=== PATIENT | male | born 1960 | race Caucasian/White ===

== ENCOUNTER 2016-04-15 22:43 | Inpatient (IN) | payer BC ==
[2016-04-15 23:07] LABS: % IMMATURE GRANULYOCYTES 0.1 % (0.0-1.1); ABSOLUTE IMMATURE GRANULOCYTES 0.01 10^3/uL (0.00-0.10); ADD DIFF? NO; ADD MORPH? NO; ADD SCAN? NO; ATYPICAL LYMPHOCYTE FLAG 20 (0-99); FRAGMENT RBC FLAG 0 (0-99); HEMATOCRIT 47.7 % (40.0-51.0); HEMOGLOBIN 15.9 g/dL (13.7-17.5); LEFT SHIFT FLG 0 (0-99); LIPEMIA HEMOLYSIS FLAG 80 (0-99); MEAN CELL HEMOGLOBIN 29.6 pg (27.9-34.1); MEAN CELL HEMOGLOBIN CONCENTR. 33.3 g/dL (32.4-36.7); MEAN CELL VOLUME 88.8 fL (81.5-99.8); MEAN PLATELET VOLUME 10.7 fL (8.7-11.7); PLATELET CLUMPS FLAG 0 (0-99); PLATELET COUNT 229 10^3/uL (150-400); RED BLOOD CELL COUNT 5.37 10^6/uL (4.40-6.38); RED CELL DISTRIBUTION WIDTH 12.3 % (11.5-15.2)
--- NOTE | 2016-04-15 23:14 | CPEKG ---
Heart Rate: 71 RR Interval: 845 P-R Interval: 172 QRSD Interval: 94 QT Interval: 376 QTC Interval: 409 P Sardis: 64 QRS [place]ardis: 31 T Wave S[place]is: 65 EKG Severity - BORDERLINE ECG - EKG Impression: SINUS RHYTHM EKG Impression: PROBABLE LEFT ATRIAL ABNORMALITY Electronically Signed By: Leigh Ortiz 16-Apr-2016 06:33:02
[2016-04-15 23:18] LABS: ANION GAP 13 mEq/L (8-16); CALCIUM 9.7 mg/dL (8.5-10.4); CARBON DIOXIDE 27 mEq/l (22-31); CHLORIDE 103 mEq/L (97-110); GLOMERULAR FILTRATION RATE > 60; GLUCOSE 121 mg/dL (70-100); POTASSIUM 3.7 mEq/L (3.5-5.2); SODIUM 143 mEq/L (134-144)
[2016-04-16] MEDS ORDERED: NS 1,000 ML IV SCH ×3 (00:30→15:15)
--- NOTE | 2016-04-16 00:53 | EDPHY ---
H & P Stated Complaint: right side face droop and r arm weakness, 2215 onset Time Seen by Provider: 04/15/16 23:12 HPI/ROS: HPI The patient presents with right-sided facial drooping and right upper extremity weakness which he initially noticed at 10 25:00 p.m. tonight while watching television. He felt the acute onset of numbness of the right side of his face and noticed that his speech was slurred. He had difficulty moving his face. He also noticed that his right hand was weak. When he tried to brush his teeth he was unable to hold the toothbrush. He came into the emergency room immediately and says that his symptoms have improved somewhat but not completely. He does not have any headache or vomiting. He does not have any loss of consciousness. He denies any recent injuries. He has no prior history of similar. He has not been sick recently. REVIEW OF SYSTEMS Constitutional: No fever, no chills. Eyes: No discharge. ENT: No sore throat. Cardiovascular: No chest pain, no palpitations. Respiratory: No cough, no shortness of breath. Gastrointestinal: No abdominal pain, no vomiting. Genitourinary: No hematuria. Musculoskeletal: No back pain. Skin: No rashes. Neurological: No headache. PMHx: Healthy, no hypertension or diabetes Soc Hx: Denies any alcohol or drug use PHYSICAL General Appearance: Alert, no distress Eyes: Pupils equal and round no pallor or injection ENT, Mouth: Mucous membranes moist Respiratory: There are no retractions, lungs are clear to auscultation Cardiovascular: Regular rate and rhythm Gastrointestinal: Abdomen is soft and non-tender, no masses, bowel sounds normal Neurological: Alert and oriented x3, cranial nerves 2-12 intact except for mild right-sided facial droop which spares forehead, speech is fluid, no pronator drift, 5/5 strength in upper and lower extremities which is symmetric, no extinction, normal finger to nose and heel to murphy testing. NIH stroke score is 1. Skin: Warm and dry, no rashes Musculoskeletal: Neck is supple non tender Extremities: symmetrical, full range of motion Psychiatric: Patient is oriented X 3, there is no agitation Source: Patient - Personal History Current Tetanus/Diphtheria Vaccine: Yes Current Tetanus Diphtheria and Acellular Pertussis (TDAP): Yes - Medical/Surgical History Hx Asthma: No Hx Chronic Respiratory Disease: No Hx Diabetes: No Hx Cardiac Disease: No Hx Renal Disease: No Hx Cirrhosis: No Hx Alcoholism: No Hx HIV/AIDS: No Hx Splenectomy or Spleen Trauma: No Other PMH: ortho surgerys - Social History Smoking Status: Current every day smoker Constitutional: Initial Vital Signs Temperature (C) 36.4 C 04/15/16 23:00 Heart Rate 88 04/15/16 23:00 Respiratory Rate 18 04/15/16 23:00 Blood Pressure 179/98 H 04/15/16 23:00 O2 Sat (%) 95 04/15/16 23:00 O2 Delivery Mode Nasal Cannula O2 (L/minute) 2 Allergies/Adverse Reactions: No Known Allergies Allergy (Unverified 04/16/16 00:20) Medical Decision Making - Diagnostics EKG Interpretation: EKG: Complete interpretation has been separately recorded in the [email or web address] archive. Summary impression: Normal sinus rhythm Imaging: CT head without contrast demonstrates 2 2 mm areas of hyperdensity in the left basal ganglia, images were reviewed and discussed with the radiologist Dr. Valentin. MRI MRA of brain demonstrates periventricular white matter changes but no evidence of left basal ganglia restricted diffusion, discussed with Dr. Estrada of Radiology. Differential Diagnosis: This is a healthy 55-year-old man who presents with right-sided facial droop and right arm weakness which began at 10:25 p.m. tonight while watching television. By the time he arrived in the emergency room his symptoms had begun to resolve. On my exam, he was noted to have a mild right-sided facial droop with no extremity weakness, NIH stroke score was 1. He was taken emergently to CT scan which revealed possible tiny hemorrhage versus calcification of left basal ganglia region. The case was discussed with [facility] Dr. Griffin. She recommended further imaging with MRI MRA, blood pressure control to maintain systolic blood pressure of about 140-150, ICU admission. She agreed that he is not a tPA candidate given that his stroke score is so low, symptoms are improving, and there is some concern for bleeding. The patient will be admitted to the ICU by Dr. Mead with whom I have discussed the case. Differential diagnosis includes ischemic stroke, hypertensive hemorrhage, Tony' s paralysis after seizure, less likely Zacarias's palsy given upper extremity weakness. - Data Points Laboratory Results: Laboratory Results 04/15/16 22:55 04/15/16 22:55 04/15/16 04/15/16 22:55 22:51 WBC 7.08 10^3/uL (3.80-9.50) RBC 5.37 10^6/uL (4.40-6.38) Hgb 15.9 g/dL (13.7-17.5) POC Hgb 16.3 gm/dL (14.5-17.3) Hct 47.7 % (40.0-51.0) POC Hct 48 % (42.8-50.6) MCV 88.8 fL (81.5-99.8) MCH 29.6 pg (27.9-34.1) MCHC 33.3 g/dL (32.4-36.7) RDW 12.3 % (11.5-15.2) Plt Count 229 10^3/uL (150-400) MPV 10.7 fL (8.7-11.7) Neut % (Auto) 47.1 % (39.3-74.2) Lymph % (Auto) 38.4 % (15.0-45.0) [place] % (Auto) 10.2 % (4.5-13.0) Eos % (Auto) 3.4 % (0.6-7.6) Baso % (Auto) 0.8 % (0.3-1.7) Nucleat RBC Rel Count 0.0 % (0.0-0.2) Absolute Neuts (auto) 3.33 10^3/uL (1.70-6.50) Absolute Lymphs (auto) 2.72 10^3/uL (1.00-3.00) Absolute Monos (auto) 0.72 10^3/uL (0.30-0.80) Absolute Eos (auto) 0.24 10^3/uL (0.03-0.40) Absolute Basos (auto) 0.06 10^3/uL (0.02-0.10) Absolute Nucleated RBC 0.00 10^3/uL (0-0.01) Immature Gran % 0.1 % (0.0-1.1) Immature Gran # 0.01 10^3/uL (0.00-0.10) POC Sodium 144 mEq/L (134-144) Sodium 143 mEq/L (134-144) POC Potassium 3.4 mEq/L (3.3-5.0) Potassium 3.7 mEq/L (3.5-5.2) POC Chloride 103 mEq/L (96-108) Chloride 103 mEq/L (97-110) Carbon Dioxide 27 mEq/l (22-31) Anion Gap 13 mEq/L (8-16) POC BUN 14 mg/dL (7-23) BUN 15 mg/dL (7-23) Creatinine 1.0 mg/dL (0.7-1.3) POC Creatinine 1.1 mg/dL (0.8-1.5) Estimated GFR > 60 Glucose 121 H mg/dL (70-100) POC Glucose 124 H mg/dL (70-100) Calcium 9.7 mg/dL (8.5-10.4) Point of Care Test Results: 04/15/16 22:51 POC Sodium 144 POC Potassium 3.4 POC Chloride 103 POC BUN 14 POC Creatinine 1.1 POC Glucose 124 H Departure - Departure Disposition: [facility] Inpatient Acute Clinical Impression: Facial droop, Elevated blood pressure reading Transient cerebral ischemia Qualifiers: Transient cerebral ischemia type: other Qualifier Code: (G45.8) Other transient cerebral ischemic attacks and related syndromes Condition: Fair
--- NOTE | 2016-04-16 01:02 | GHP ---
[f rep st] HISTORY AND PHYSICAL DATE OF ADMISSION: 04/15/2016 CHIEF COMPLAINT: Right facial droop, right arm weakness. HISTORY OF PRESENT ILLNESS: Patient is a pleasant 55-year-old male with no significant past medical history, presenting with right face and arm tingling. Patient was in a normal state of health up until this evening. He was getting ready for bed and then suddenly felt off. He developed tingling in his right face, arm, and hand. He then felt weak in the right hand especially. He was trying to grasp things and dropping them, such as his toothbrush. He then developed slurred speech. He denies headaches or vision changes. Upon arrival to the emergency room, he was noted to have a right facial droop. He was evaluated by Frankie Huang. CT head was obtained which shows small punctate lesions in the right basal ganglia that were called as calcifications. However, after further review there was concern that these could be small hemorrhagic lesions. Dr. Ortiz in the emergency room contacted Frankie Huang again, who recommended further imaging with an MRA. It is still unclear whether this is hemorrhagic in nature or not. ROS: I completed 10-point review of systems, negative except noted in HPI. PMH: none PSH: left shoulder, right tib/fib fracture, bilateral inguinal hernias SH: lives in [place] with . Works in IT. Social alcohol use, no illicits or tobacco FHx: no strokes, paternal grandpaL [place], several types of cancer Meds: none Allergies: none PE: Afebrile, BP 179/80, HR 80s, RR 16, 95%RA. Gen: NAD, sitting up in bed. HEENT: PERRLA, EOMI. Oropharynx clear. CV: RRR, no m/g/r. Lungs: CTA, BL. GI: soft, NT, ND, +BS. : no Eng or suprapubic TTP. Skin: warm, dry, no rash. Neuro: CN2-12 intact, facial droop resolved, no pronator's drift, normal sensation to touch. Musk: 5/5 UE/LE strength. Psych: A&Ox3 Labs: WBC 7, H/H 15/47, platelets 229, NA 147, K 3.4, now 4.7, Chloride 109. Bicarb 24, BUN 12, Cr 0.8, glucose 122. Coags WNL. CTH: verbal read from Dr. Ortiz: punctate lesions in right basal ganglia, now possible concern for small hemorrhagic lesions. EKG is personally reviewed by me. Normal sinus rhythm. Left atrial enlargement. ASSESSMENT AND PLAN: 1. Right facial droop/arm weakness: TIA vs. hemorrhagic CVA with initial CT findings. Not a t-PA candidate in ER since symptoms nearly resolved and questionable hemorrhagic lesions. Admit to the ICU, frequent neuro checks. Will treat if SBP > 160. MRI/MRA pending; if negative will need antiplatelet before discharge. Check lipids, A1c, TTE with bubble, and monitor on telemetry. PT, OT , Speech evaluations. Neurology to see patient in the morning. 2. Accelerated hypertension. Blood pressure was elevated, systolic 179 at admission, is now 140s. Will monitor closely. 3. Diet. N.p.o. until passes a swallow eval, then can have regular diet. 4. DVT prophylaxis. Low risk, ambulatory. No anticoagulation given possible hemorrhagic strokes. DISPOSITION: The patient warrants an inpatient admission to the ICU for frequent neuro checks, blood pressure control, pending neurology consult. /[id number]/MODL and [id number], 04/16/16 0031 JOSE DANIEL
[2016-04-16 05:05] LABS: ANION GAP 11 mEq/L (8-16); CALCIUM 9.6 mg/dL (8.5-10.4); CARBON DIOXIDE 24 mEq/l (22-31); CHLORIDE 109 mEq/L (97-110); CREATININE 0.8 mg/dL (0.7-1.3); GLOMERULAR FILTRATION RATE > 60; GLUCOSE 122 mg/dL (70-100); INR 0.99 (0.83-1.16); POTASSIUM 4.7 mEq/L (3.5-5.2); SODIUM 144 mEq/L (134-144)
[2016-04-16 06:19] LABS: CHOLESTEROL 122 mg/dL (140-220); CHOLESTEROL/HDL RATIO 2.26 RATIO (1.00-4.97); HIGH DENSITY LIPOPROTEIN 54 mg/dL (40-65); LDL/HDL RATIO 0.96 RATIO (1.00-3.64); LOW DENSITY LIPOPROTEIN 52 mg/dL (80-100); NON-HIGH DENSITY LIPOPROTEIN 68 mg/dL (90-129); TRIGLYCERIDE 81 mg/dL (40-150); VERY LOW DENSITY LIPOPROTEINS 16 mg/dL (8-25)
[2016-04-16] MEDS ORDERED: IOPAMIDOL (ISOVUE 370) 100 ML BTL IV ONE (08:31)
--- NOTE | 2016-04-16 08:41 | CT ---
Noncontrast Head CT Indication: Stroke alert. Slurred speech.. Technique: Standard noncontrast axial CT images of the head were performed. Dose reduction techniq ues were utilized. Findings: Punctate hyperdensities within the left basal ganglia may represent small microhemorrhage s or calcification. Follow-up CT would be of benefit in these two possibilities, as prior studies are not available for comparison. No evidence of mass or mass effect. Ventricles are appropriate in size and shape. The paranasal sinu ses are clear. Impression: Punctate hyperdensities within the left basal ganglia, calcifications versus small micr ohemorrhages potentially related to hypertension. Recommend follow-up noncontrast CT to separate thes e two possibilities as clinically appropriate. Results directly reviewed with Dr. Ortiz at the time of the interpretation.
[2016-04-16 08:52] LABS: HEMOGLOBIN A1C 5.7 % (4.0-6.0)
--- NOTE | 2016-04-16 09:04 | MR ---
Unenhanced MRI of the Brain and MR Angiography of the Brain Clinical History: 55-year-old male who was brushing his teeth earlier in the evening, and dropped his toothbrush. Those symptoms have resolved, however, the patient presents to the ED and is noted to have a right facial droop which has slightly improved. Evaluate for an acute stroke. Technique: MRA: A znim-xe-elkbge gradient echo technique was used for thin axial images at the skull base for evaluation of the major vessels of the [place]. A three-dimensional technique was used with an appropriate gradient echo flip angle, and a traveling saturation band. Images were manipulated by the radiologist at the computer workstation. Unenhanced MRI of the Brain: Sagittal and axial T1W, axial T2, FLAIR, SWI, and DWI sequences with ADC map. Comparison Study: Unenhanced CT Scan of the brain dated 04/15/16 at 11:05 PM. Findings: UNENHANCED MRI OF THE BRAIN: Again, the ventricles and basilar cisterns are normal in size, and symmetrical in configuration. There is no midline shift or other evidence of mass effect. There is no acute or subacute intraaxial or extraaxial blood collection identified. There is an old tiny linear focus of hypointense T1- and hyperintense T2-weighted signal in the right cerebellum, which may be related to an old lacune. The brainstem and cerebellum appear normal. There are scattered periventricular white matter changes seen at and above the level of the ventricles on the inversion-recovery sequence, most consistent with chronic microvascular ischemic gliosis. The possibility of old posttraumatic or postinflammatory change is also mentioned. There is no restricted division at the level of the left basal ganglia to correspond to the patient's symptoms (which appear to be resolving). However, on series 4, image 14, there is a punctate focus of hyperintense DWI signal dorsal to the left occipital horn, of uncertain significance, as the patient reportedly did not have any visual symptoms. The SWI sequences do not reveal any blooming artifact to suggest occult hemorrhagic products, or evidence of amyloid angiopathy. There is some chronic mucosal thickening in the floor of the maxillary sinuses. The other paranasal sinuses and mastoids are unremarkable. The craniocervical junction, sella turcica, pineal gland, and the orbits are unremarkable. There are appropriate vertebrobasilar, carotid artery, and dural venous sinus flow voids. MRA OF THE BRAIN: The petrous, cavernous, and supraclinoid portions of the internal carotid arteries appear normal, and the M1, M2, and M3 trifurcation vessels, as well as the A1 and A2 segments are patent. 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 The vertebrobasilar system is patent, including the superior and the inferior cerebellar and posterior cerebral arteries. There is no significant stenosis, vascular "cut-off" to suggest thrombus, or aneurysm or vascular malformation identified. I provided a preliminary interpretation to Dr. Leigh Ortiz at 1:50 a.m. on April 16, 2016, regarding the above findings. My final interpretation is concordant with my initial impression. Impression: 1. There is no evidence of an acute basal ganglia or MCA territory infarct. There is a punctate focus of restricted diffusion in the left occipital lobe, of uncertain significance as the patient does not report any visual symptoms. 2. Nonspecific mild chronic periventricular microvascular ischemic gliosis. 3. Mild chronic maxillary sinus mucosal thickening. 4. Normal MRA of the brain. POS99 MTDD
--- NOTE | 2016-04-16 09:19 | GCON ---
[f rep st] CONSULTATION NEUROLOGIC CONSULTATION. REFERRING PHYSICIAN: Jeannette Mead MD HISTORY: The patient is a 55-year-old gentleman presenting with a chief complaint of some right-side d weakness. He says that at 10:30 p.m. last night he was watching television and got up and noticed acute weakness of the right arm and some tingling in the right side of his face. When he spoke, he s ays his speech was slightly slurred. He rested for a few minutes but noticed that symptoms were not going away. He decided to drive himself to the hospital and said that within about 1 hour, he felt m ost of the symptoms had resolved. He came in, and had acute evaluation and there was thought to be s ome right facial droop. He had a head CT showing suspected basal ganglia calcifications and then que stion whether it could be hemorrhagic in origin. MRI was performed that did not show evidence of hem orrhage but a small stroke was evident in the left occipital region. The patient did not have any vi sual complaints. He then was admitted to the hospital for further evaluation. In the emergency department, he was seen by Dr. Leigh Ortiz. His NIH stroke scale was a 1 at t hat point, with the right facial droop and no other weakness was evident. Dr. Griffin was consulted wi [facility] and he was not considered a tPA candidate given the very low stroke scale a nd improvement of symptoms and the question of whether there might be some blood. Initially, his blo od pressure was around 170-180 systolic but within an hour or so he was coming quickly down toward e 120-140 systolic range and has been stable. The patient tells me that he has never had similar symptoms before. He has no chronic medical proble ms that he is aware of. He does not take any prescription medications. He stays active and eats a h ealthy diet. He works in [employer]. No recent illness. In February he said he had a fall and hit hi s head but was not severely injured and did not have any specific complaints at the time. FAMILY HISTORY: There is a family history of stroke or clotting disorders that he is aware of. REVIEW OF SYSTEMS: A 10-point review of systems is completed and unremarkable except for that noted above. Specifically, he is denying any history of chest pain, palpitations or shortness of breath. No headache. No prior history of migraine. Right now, the symptoms, as best he can tell, are resolv ed. He does perceive perhaps a little bit of discoordination of the right hand. PAST MEDICAL HISTORY: As outlined above. SOCIAL HISTORY: He rarely consumes alcohol. No drug use. No history of smoking. He has a signific ant other. ALLERGIES: No known drug allergies. PHYSICAL EXAM: VITAL SIGNS: Blood pressure 136/76, pulse of 79, respirations 15, temperature 37. H e has remained afebrile during hospitalization. GENERAL: He is well developed, in no acute distress . EYES: Clear. NECK: Supple with no bruits or masses. CARDIAC: Regular rate and rhythm. No mur mur. EXTREMITIES: No cyanosis or edema. Pulses 2+ and symmetric. No skin rash. NEUROLOGIC: His NIH stroke scale is 4 based on the right facial droop, decreased right facial sensation and drift in the right upper extremity and right lower extremity. Pupils are 4 mm and reactive. Unremarkable fun di. Normal visual acuity. No visual field loss. Extraocular movements are intact. Normal facial s ensation and movement on the left but he has a mild right facial droop with facial asymmetry at rest and also with some movement in the right corner of the mouth particularly. The temperature is decrea sed in the right cheek compared to the left. Palate elevates symmetrically and tongue protrudes midl ine. Hearing is preserved. No weakness of head turning or shoulder shrug. Motor exam reveals a mil d drift in the right upper extremity and right lower extremity with a grade 4/5 weakness on the right compared to the left, which is normal. The sensation testing shows no definite asymmetry of tempera ture or touch in the upper or lower extremities. No abnormal movements are occurring. Coordination is preserved without ataxic movements. Rapid alternating movements appear the same in his hands alth ough he says it feels slightly different in the right hand compared to the left. Reflexes are slight ly brisk but symmetric with no definite Babinski sign. I reviewed the diagnostic imaging and agree that there appears to be calcification the left basal irma glia but not hemorrhage on MRI and no acute stroke evident in that same region on the MRI and the dif fusion study. However, there is an area of restricted diffusion in the left occipital lobe, less nanci n 1 cm, consistent with probable acute ischemia. The EKG shows sinus rhythm. Normal CBC. INR is no rmal. The glucose is minimally elevated. Total cholesterol 122, LDL cholesterol 52. IMPRESSION: The patient has clinical evidence of an acute ischemic stroke despite the lack of clear cut lesion in the left hemisphere correlating with the symptoms of right face, arm and leg weakness a nd some right facial numbness. It may be small enough that it is not showing up on the initial scan which was obtained quite promptly after he came to the hospital. He had NIH stroke scale of 1 docume nted in the Emergency Department, so the weakness in the right side is new since admission but he had some weakness on the right side when he first reported symptoms so there has been a little bit of fl uctuation. The fact that we see diffusion restriction in the left occipital lobe despite no clear co rrelation with that lesion to the symptoms, it raises the possibility that he had a small embolic airam wer. He does not have the typical history for small vessel ischemic disease. He does not have known cardiac disease. We need to do an extensive workup to look for the potential cause for this. We wi ll have echocardiogram with bubble study. I will check hypercoagulable panel. I will check CT angio gram of the head and neck for clarification of any subtle changes. If all this workup is negative, w e should anticipate doing a transesophageal echocardiogram and perhaps prolonged cardiac monitoring l ooking for occult atrial fibrillation. In the short term, I will put him on 81 mg of aspirin daily. He has a low LDL cholesterol of 52, but there is evidence that use of statin therapy can still be be neficial even in patients with low-cholesterol so I anticipate putting him on statin therapy prior to discharge. He will have physical, occupational and speech therapy consultations. /[id number]/MODL
[2016-04-16] MEDS: ASPIRIN 81 MG CHEWABLE TAB PO SCH (09:46)
--- NOTE | 2016-04-16 11:05 | ECHO ---
[id number] + + [address] : : [place] [address] : : [phone] + Adult Echocardiographic Report + ----+ :Name: CINDY JOY Dilan Date: 04/16/2016 10:07 AM : : Hospital Admission Number: [id number] Location: 244: :: 1960 Gender: Male Height: 75 in : :Age: 55 yrs Race: WH Weight: 163 lb : :Reason For Study: Hemorrhagic Stroke : : BSA: 2.0 meters2 : :History: No previous : + ----+ MMode/2D Measurements & Calculations IVSd: 1.1 cm LVIDd: 3.4 cmFS: 29.9 % LVLd ap4: 7.1 cm LVPWd: 0.95 cm LVIDs: 2.4 cmEDV(Teich): 47.0 ml EDV(MOD-sp4): 58.0 ml ESV(Teich): 19.6 ml LVLs ap4: 5.9 cm EF(Teich): 58.3 % ESV(MOD-sp4): 24.0 ml EF(MOD-sp4): 58.6 % SV(MOD-sp4): 34.0 ml Normal Measurement Values: + + :LVIDd (3.5-5.7cm) IVSd (0.6-1.1cm) LVPWd (0.6-1.1cm) Aortic Root (2.0-3.7cm)Left Atrium (1.5-4.0cm): :LV Vol(d) (76-115ml) LV Vol(s) (29-48ml) Ejec Fraction (50-65%)PV Jason (0.6- 1.2m/s) TV Jason (0.4-1.0m/s) : :MV E Jason (0.8-1.0m/s)MV A Jason (0.3-1.0m/s)LVOT Jason (0.7-1.2m/s) Asc Ao Jason ( 0.9-1.8m/s) : + + Left Ventricle The left ventricle is normal in size and function. There is normal left ventricular wall thickness. Ejection Fraction = 60%. Atria Injection of contrast documented an interatrial shunt. Pericardium/Pleural There is no pericardial effusion. Conclusion This is a limited study to evaluate EF and Atrial Septum. The left ventricle is normal in size and function. Ejection Fraction = 60%. Injection of contrast documented an interatrial shunt. Final Reading Physician: Elder Berry signed on 04/16/2016 11:04 AM Ordering Physician: Rodrigo Billings Performed By: Anny Baltazar
--- NOTE | 2016-04-16 12:29 | CT ---
CT Angiography of the Head and Neck Clinical History: 55-year-old male admitted last evening with right-sided arm weakness, slurred speec h, and a right facial droop, with symptoms which have since subsided. Rule out hemodynamically signif icant stenosis or intra-arterial thrombus. Technique: A timing bolus was used. The patient received 85 mL of IV Isovue-370 without complication, and a multidetector helical CT scan was obtained during peak systemic arterial phase from the level of the aortic arch cephalad to the skull vertex, with images reformatted at 0.75 mm increments, and r eviewed at a variety of window and level settings. Multiplanar reconstructions are evaluated. The DFO V is 26.3 cm, and a dose reduction protocol was used. Comparison Studies: CT imaging dated April 15, 2016, and MR imaging from earlier this morning. Findings CT ANGIOGRAPHY OF THE NECK: There is anatomic variation in the great vessels as they arise off the ao rtic arch such that the left vertebral artery arises directly off the arch rather than from the left innominate. The right and left vertebral arteries are widely patent, and relatively codominant. There is no luminal stenosis to suggest dissection. The common carotid arteries are widely patent bilatera lly, with no eccentric soft or hard plaque, stenosis, or mural or intraluminal thrombus. There is no dissection. CT Source Images demonstrate some mild biapical pleural-parenchymal fibrosis. The visualized superior mediastinal structures are unremarkable. The cervical and upper thoracic vertebral body heights are maintained. There is degenerative disk space narrowing at C5-C6, C6-C7, and C7-T1. There are facet de generative changes with uncovertebral hypertrophy resulting in mild left C2-C3, severe left C3-C4, se linh bilateral C5-C6, severe right and moderate left C6-C7, and moderate bilateral C7-T1 neural thuy inal narrowing. The visualized prevertebral soft tissues are normal. Impression: 1. Patent antegrade vertebral arteries. 2. Patent carotid vasculature. CT ANGIOGRAPHY OF THE BRAIN: The distal cervical vertebral arteries, vertebrobasilar confluence, infe rior and superior cerebellar arteries, basilar tip, and the posterior cerebral arteries are normal. R egarding the anterior circulation, the distal cervical, petrous, cavernous, and the supraclinoid port ions of the internal carotid arteries are patent. The M1, M2, and M3 trifurcation vessels are patent. The anterior and middle cerebral arteries are patent. There is no eccentric stenosis, intraluminal t hrombus, dissection, aneurysm, or vascular malformation identified. The dural venous sinuses appear p atent. Impression: Normal CT angiogram of the brain. Measurement of carotid stenosis is based on velocity parameters that correlate the residual internal carotid diameter with [place] Symptomatic Carotid Endarterectomy Trial (NASCET) based stenosis levels.
--- NOTE | 2016-04-16 15:27 | HOSPPROG ---
Hospitalist Progress Note Assessment/Plan: 55 yo M with no significant pmh presenting with ischemic cva # ischemic cva: noted on brain mri. Etiology unclear at this point without clear rf--head/neck cta w/o sig stenosis, echo w/ e/o interatrial shunt. will r/ o DVT and will obtain JOHN in am. Continue monitoring on tele to eval for a fib. Continue asa/started statin. Essentially asymptomatic currently # hyperglycemia: a1c 5.7, likely stress response # hypertension: mild, monitoring, may need bp med if continues to be moderately elevated # dispo: IP status, high risk given acute cva and need for expedited w/u to eval for ongoing stroke risk Patient new to my care. Old records reviewed. Care plan reviewed with neuro/ pulm as above. Further hx obtained from patients present at bedside. Subjective: no significant overnight events, patient feeling well other than being bored Objective: Vital Signs Temp Pulse Resp BP Pulse Ox 36.6 C 62 18 133/82 H 98 04/16/16 12:00 04/16/16 14:00 04/16/16 14:00 04/16/16 14:00 04/16/16 14:00 Laboratory Results 04/16/16 04:35 04/15/16 04/16/16 04/17/16 05:59 05:59 05:59 Intake Total 300 Balance 300 PT 13.0 SEC (12.0-15.0) 04/16/16 04:35 INR 0.99 (0.83-1.16) 04/16/16 04:35 awake alert nad anicteric op clear rrr no mrg cta b soft nt nd no cce warm dry well perfused oriented appropriate - Time Spent With Patient Time Spent with Patient: greater than 35 minutes Time Spent with Patient: Greater than 35 minutes spent on this patients care, greater than 50% of time spent counseling, educating, and coordinating care regarding the above mentioned plan. ICD10 Worksheet Patient Problems: Problems Problem Status Diagnosed Elevated blood pressure reading Acute Facial droop Acute Transient cerebral ischemia Acute
[2016-04-16] MEDS: ATORVASTATIN CALCIUM 40 MG TAB PO SCH (16:22)
--- NOTE | 2016-04-16 19:44 | US ---
Ultrasound Venous Doppler Study of Lower Extremities Bilaterally History: New CVA; evaluate for thrombotic source; assess for deep vein thrombosis. Technique: High frequency transducer was used for imaging and Doppler study of the veins of the lowe r extremities bilaterally. Pulsed Doppler and color Doppler were utilized, along with various maneuve rs to assess flow in the veins. Findings: The deep veins of the lower extremities are normally compressible between the groin and th e upper calf and have normal Doppler waveforms within them. No venous thrombosis is identified in ei ther lower extremity. Impression: No evidence of deep vein thrombosis in either lower extremity.
[2016-04-17] MEDS: ATORVASTATIN CALCIUM 40 MG TAB PO SCH (09:32)
[2016-04-17] MEDS: ASPIRIN 81 MG CHEWABLE TAB PO SCH (09:32)
--- NOTE | 2016-04-17 09:35 | NEUROPROG ---
Assessment: At this point, we know that the patient has experienced a stroke with ongoing mild symptoms of right facial droop and right-sided weakness. We do not have a specific cause identified. He may have a PFO based on the initial echocardiogram, but we will get further clarification with transesophageal echocardiogram today. Anti-platelet therapy and statin therapy is appropriate. I will provide him literature on this topic and would recommend he have a cardiology consultation to talk about some of the potential risks and benefits of closure. There is certainly not a consensus statement as to whether patient should or should not have closure for PFO in the setting of new stroke when it is cryptogenic. There are arguments on both sides of this topic. He can be discharged home today after his echocardiogram and follow up with me as an outpatient within the next month. He should have consultation with Cardiology regarding the PFO and specific consideration of closure verses best medical therapy. Subjective: This morning the patient says that he feels good. He is not aware of any specific symptoms currently. He has rested well. He denies any shortness of breath or chest pain. No palpitations. His monitoring has not revealed any atrial fibrillation. He has not found any alleviating or exacerbating factors for his symptoms at this point. There is no significant headache. Objective: Vital Signs Temp Pulse Resp BP Pulse Ox 36.5 C 87 11 L 116/81 H 94 04/17/16 08:00 04/17/16 08:00 04/17/16 08:00 04/17/16 08:00 04/17/16 08:00 Laboratory Results 04/16/16 04:35 04/16/16 04/17/16 04/18/16 05:59 05:59 05:59 Intake Total 300 2200 Output Total 500 Balance 300 1700 PT 13.0 SEC (12.0-15.0) 04/16/16 04:35 INR 0.99 (0.83-1.16) 04/16/16 04:35 He is awake and alert and oriented to person place and time. He has good recent and remote memory as well as normal concentration and attention. Extraocular movements are intact. He continues to have a mild right lower facial droop with weakness of the right lower face. Sensation is preserved. There is also still a mild right jessi paresis affecting the arm and right leg. Sensation is preserved. Echocardiogram yesterday revealed essentially normal ejection fraction but evidence on projection of saline for a atrial septal defect or PFO. Further clarification is planned with a transesophageal echocardiogram today. CT angiogram of the head and neck do not reveal any hemodynamically significant stenoses. Allergies/Adverse Reactions: No Known Allergies Allergy (Unverified 04/16/16 00:20)
[2016-04-17] MEDS ORDERED: MIDAZOLAM 2 MG/2 ML VIAL ONE (10:32)
[2016-04-17] MEDS ORDERED: fentaNYL 100 MCG/2 ML INJ ONE (10:32)
[2016-04-17] MEDS ORDERED: MIDAZOLAM 2 MG/2 ML VIAL IVP ONE ×2 (11:00→11:30)
[2016-04-17] MEDS ORDERED: fentaNYL 100 MCG/2 ML INJ IVP ONE (11:00)
--- NOTE | 2016-04-17 11:38 | ECHO ---
[id number] + + [address] : : [place] [address] : : [phone] + Transesophageal Echocardiographic Report + ----+ :Name: CINDY JOY VStudy Date: 04/17/2016 10:38 AM : : Hospital Admission Number: [id number] Location: 244: :: 1960 Gender: Male Height: 66 in : :Age: 55 yrs Race: WH Weight: 193 lb : :Reason For Study: Eval Lv : : BSA: 2.0 meters2 : :History: Ischemic CVA : + ----+ Left Ventricle The left ventricle is normal in size and function. The left ventricular ejection fraction is normal. Ejection Fraction = 65-70%. Right Ventricle The right ventricle is normal in size and function. Atria Doppler suggests right to left interatrial shunt. A patent foramen ovale is present. Injection of contrast documented an interatrial shunt. No left atrial mass or thrombus visualized. No thrombus is detected in the left atrial appendage. Mitral Valve The mitral valve is normal in structure and function. There is no evidence of mitral valve prolapse. There is no mitral valve stenosis. There is trace mitral regurgitation. Tricuspid Valve The tricuspid valve is normal in structure and function. No tricuspid regurgitation. Aortic Valve The aortic valve is trileaflet. There is no aortic stenosis. There is no aortic insufficiency. Pulmonic Valve The pulmonic valve is normal in structure and function. There is no pulmonic valvular regurgitation. Vessels The aortic root is normal size. Pericardium There is no pericardial effusion. Conclusion A 2D transesophageal echocardiogram with color flow Doppler was performed. The left ventricular ejection fraction is normal. There are no wall motion abnormalities. Ejection Fraction = 65-70%. Valvular appearance is normal. Doppler suggests right to left interatrial shunt. A small patent foramen ovale is present. Injection of contrast documented an interatrial shunt. No left atrial mass or thrombus visualized. No thrombus is detected in the left atrial appendage. There is trace mitral regurgitation. Final Reading Physician: Elder Berry signed on 04/17/2016 11:37 AM Ordering Physician: Yuly Spencer
[2016-04-17 12:33] VITALS: BP 114/69; PULSE 83; RESP 16; TEMP 97.9; O2SAT 91
[2016-04-17 13:46] LABS: PROTEIN C ACTIVITY 116 % (70 - 150)
[2016-04-17 14:29] LABS: PROTEIN S ACTIVITY 142 % (65 - 160)
--- NOTE | 2016-04-17 18:45 | GDS ---
[f rep st] DISCHARGE SUMMARY DISCHARGE DIAGNOSES: 1. Suspect embolic stroke. 2. Patent foramen ovale. HISTORY: The patient is a 55-year-old male who presented to the emergency room, felt weakness in his right hand with slurred speech and was noted to have a right facial droop. He came in as a stroke a lert. His initial CT scan was unclear whether or not there may be a small hemorrhage. He was not, t herefore, a candidate for tPA. Further imaging with MRI did not show hemorrhage but luckily his neur ologic symptoms did improve. He was seen here in consultation with Neurology. He was found to have a PFO that was also seen on JOHN. MRI distribution of stroke compared with neuro symptoms is most con sistent with embolic stroke. He did not have any evidence of AFib during his [facility]. CT angiogram of the head and neck was negative. MRI showed a small stroke in his left occipita l lobe which did not correlate with his symptoms. Suspicion is that he had small embolic shower and the embolus causing the symptoms was too small to detect on MRI. He did not have any evidence of vas cular disease. We did not find a distinct indication for full anticoagulation. We do think he needs further cardiol ogy followup. We are recommending outpatient cardiac monitoring for undetected AFib. We are also re commending consultation for discussion of PFO closure which is, at this point, considered controversi al. His neuro symptoms were nearly fully resolved at discharge, and he was felt safe to be able to g o home and pursue this further as an outpatient. DISCHARGE MEDICATIONS: Please see computer record for full detailed list. New medications: 1. Aspirin 325 mg p.o. daily. 2. Lipitor 10 mg p.o. daily. ADDITIONAL DISCHARGE INSTRUCTIONS: Follow up with Cardiology for: 1. Cardiac monitoring, rule out atrial fibrillation. 2. Discussion of risks and benefits of PFO closure. 3. Follow up as an outpatient pending hypercoagulable panel. 4. Follow up with Dr. Billings of Neurology. 5. Follow up with Dr. Emerson at [facility]. Patient seen and examined by me on the day of discharge. Greater than 30 minutes' time spent arrangi ng his discharge. /[id number]/MODL
[2016-04-18] MEDS ORDERED: FUROSEMIDE 20 MG/2 ML VIAL ONE (15:59)
[2016-04-21 12:21] LABS: INTERPRETATION See Comments
== END 2016-04-17 16:14 | disposition home or self-care (01) | DRG 65 ==
LOC: F2N 04-16 02:18 → F3N 04-17 12:29
PROVIDERS: ADMIT Internal Medicine; ATTEND Internal Medicine
DX: I63.9 Cerebral infarction, unspecified (principal); Q21.1 Atrial septal defect; I10 Essential (primary) hypertension
CPT/HCPCS: 81332-90; 81479-90; 82947-QW; 85300-90; 85303-90; 85306-90; 86147-90; 97161-GP; 97165-GO; J2250; J3010; Q9967

== ENCOUNTER 2016-11-20 19:55 | Emergency (ER) | payer OTHER, BC ==
[2016-11-20 20:06] VITALS: RESP 16; TEMP 98.1
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
[2016-11-20] MEDS ORDERED: IOPAMIDOL (ISOVUE-300) 100 ML BTL ONE (21:10)
[2016-11-20] MEDS ORDERED: OXYCODONE/APAP 5/325MG PREPACK#4 BTL TAKEHOME ONE (22:11)
[2016-11-20 22:27] VITALS: BP 151/90; PULSE 82; O2SAT 94
== END 2016-11-20 22:26 | disposition home or self-care (01) ==
DX: S22.20XA Unspecified fracture of sternum, initial encounter for closed fracture (principal); S20.219A Contusion of unspecified front wall of thorax, initial encounter; Z79.82 Long term (current) use of aspirin; V43.52XA Car driver injured in collision with other type car in traffic accident, initial encounter; Y92.410 Unspecified street and highway as the place of occurrence of the external cause; Y99.0 Civilian activity done for income or pay; Y93.89 Activity, other specified
CPT/HCPCS: 82947-QW; Q9967